=== PATIENT | female | born 1990 | race Two or more races ===

== ENCOUNTER 2025-05-06 08:00 | Inpatient (IN) | payer OTHER ==
[2025-05-04 10:06] VITALS: BP 113/81
[2025-05-04 10:13] LABS: BASO % 0.6 % (0.1-1.2); EOS # 0.06 (0.04-0.54); EOS % 1.2 % (0.7-7.0); LYMPH # 1.39 (1.18-3.74); LYMPH % 27.1 % (19.3-53.1); MEAN PLATELET VOLUME 9.50 fl (9.4-12.4); MONO # 0.39 (0.24-0.82); MONO % 7.6 % (4.7-12.5); NEUT # 3.23 (1.56-6.13); NEUT % 62.9 % (34.0-71.1); RED CELL DISTRIBUTION WIDTH 24.8 % (11.6-14.4)
[2025-05-04 10:53] LABS: ALT/SGPT 32.0 U/L (12-78); AST/SGOT 15.0 U/L (15-37); BILIRUBIN TOTAL 0.36 mg/dL (0.3-1.2); BUN CREA RATIO 10.0 (7.0-25.0); CREATININE SERUM 0.67 mg/dL (0.55-1.02); GFR 100.75; GLOBULINA 3.9 G/DL (2.4-3.5); GLUCOSE FASTING 87.0 mg/dL (65-100); OSMOLALITY SERUM 284.0 MOSM/KG (275-295)
[2025-05-04 11:24] LABS: URINE APPEARANCE Clear; URINE BILIRRUBIN Negative (NEGATIVE); URINE BLOOD Negative; URINE COLOR Yellow; URINE GLUCOSE Negative (NEGATIVE); URINE KETONE Negative (NEGATIVE); URINE LEUKOCYTE Negative; URINE NITRATE Negative; URINE PROTEIN Negative (NEGATIVE); URINE UROBILINOGEN 0.2 E.U./dl
[2025-05-04 11:29] LABS: URINE BACTERIA 46.7 uL (0.0-1933)
[2025-05-04 11:40] LABS: URINE CAST 0.00 uL (0.0-1.40); URINE EPITHELIAL CELLS 1.0 uL (0.0-38.8); URINE RBC 1.9 uL (0.0-20.8); URINE WBC 1.0 uL (0.0-23.2)
[2025-05-04 11:47] LABS: RH POSITIVE
[2025-05-04 12:19] LABS: INR 0.98
[~2025-05-06] VITALS: Ht 157.5 cm; Wt 74.8 kg
[~2025-05-06 08:00] MED LIST: NORETHIND-ETH1 EAC1 PO; SYNTHROID75 MCG PO; VASOPRESSIN 20 UNITS/ML VIAL IJ ONE
[2025-05-06] MEDS ORDERED: VASOPRESSIN 20 UNITS/ML VIAL ONE (12:02)
[2025-05-06] MEDS ORDERED: POVIDONE-IODINE 118 ML BOTT TOP ONE (12:02)
[2025-05-06] MEDS ORDERED: MORPHINE SULFATE 4 MG/ML VIAL IV ONE (15:30)
[2025-05-06] MEDS ORDERED: KETOROLAC TROMETHAMINE 60 MG VIAL IM STA (16:56)
[2025-05-06] MEDS ORDERED: MEPERIDINE HCL/PF 50 MG/ML VIAL IM PRN (17:00)
[2025-05-06] MEDS ORDERED: RINGERS SOLUTION,LACTATED 1,000 ML IV SCH (17:00)
[2025-05-06] MEDS ORDERED: PROMETHAZINE HCL 25 MG/ML AMPUL IM PRN (17:00)
[2025-05-06] MEDS ORDERED: KETOROLAC TROMETHAMINE 30 MG VIAL IV ONE (17:35)
[2025-05-06 21:45] LABS: BASO % 0.5 % (0.1-1.2); EOS # 0.10 (0.04-0.54); EOS % 1.1 % (0.7-7.0); LYMPH # 2.62 (1.18-3.74); LYMPH % 30.0 % (19.3-53.1); MEAN PLATELET VOLUME 9.30 fl (9.4-12.4); MONO # 0.67 (0.24-0.82); MONO % 7.7 % (4.7-12.5); NEUT # 5.29 (1.56-6.13); NEUT % 60.5 % (34.0-71.1)
[2025-05-06 22:48] VITALS: BP 110/77; O2SAT 99
[2025-05-07 00:33] VITALS: BP 116/75; O2SAT 100
[2025-05-07 08:00] VITALS: BP 118/75; O2SAT 96
[2025-05-07 16:39] VITALS: BP 102/69; O2SAT 97
[2025-05-07 17:35] LABS: BASO % 0.5 % (0.1-1.2); EOS # 0.19 (0.04-0.54); EOS % 2.6 % (0.7-7.0); LYMPH # 1.93 (1.18-3.74); LYMPH % 26.2 % (19.3-53.1); MEAN PLATELET VOLUME 9.50 fl (9.4-12.4); MONO # 0.84 (0.24-0.82); MONO % 11.4 % (4.7-12.5); NEUT # 4.37 (1.56-6.13); NEUT % 59.2 % (34.0-71.1); RED CELL DISTRIBUTION WIDTH 25.0 % (11.6-14.4)
== END 2025-05-07 20:22 | disposition home or self-care (01) | DRG 743 ==
LOC: CIR.AMB 08:00 → SURH 22:07
PROVIDERS: ADMIT Student in an Organized Health Care Education/Training Program; ATTEND Student in an Organized Health Care Education/Training Program
PROC: 0UB98ZZ Excision of Uterus, Via Natural or Artificial Opening Endoscopic (ICD-10-PCS; principal; 2025-05-06 07:00)
DX: D25.0 Submucous leiomyoma of uterus (principal); N94.4 Primary dysmenorrhea